=== PATIENT | female | born 1940 | race Caucasian/White ===

== ENCOUNTER 2017-01-20 05:54 | Emergency (ER) | payer MEDICARE, OTHER ==
[2017-01-20] MEDS ORDERED: Proparacaine 0.5% Ophth Soln 15 ML Bottle EYELF STA (06:44)
--- NOTE | 2017-01-20 07:09 | EDM.PDOC ---
ED HPI GENERAL MEDICAL PROBLEM - General Chief Complaint: General Stated Complaint: EYE PAIN Time Seen by Provider: 01/20/17 06:59 - History of Present Illness INITIAL COMMENTS - FREE TEXT/NARRATIVE: HISTORY AND PHYSICAL: History of present illness: The patient is a 76 y/o female who follows at [facility] with Dr. Moreno who presents with complaints of irritation to her left eye that started 2 days ago. It's been gradual in onset and she has intermittent pain in the eye and she does have a history of an implanted lens in that eye many years ago. She has no systemic complaints of fever chills headache sore throat runny nose or sinus congestion and has had no nausea or vomiting. The patient states she has had clear tears and has not been matted. Review of systems: As per history of present illness and below otherwise all systems reviewed and negative. Past medical history: As per history of present illness and as reviewed below otherwise noncontributory. Surgical history: As per history of present illness and as reviewed below otherwise noncontributory. Social history: No reported history of drug or alcohol abuse. Family history: As per history of present illness and as reviewed below otherwise noncontributory. Physical exam: General: Well-developed well-nourished female who is nontoxic and speaking clearly and easily in the ER. HEENT: Atraumatic, normocephalic, pupils reactive, EOMs intact, there is no eyelid swelling or facial swelling, negative for conjunctival pallor or scleral icterus, mucous membranes moist, throat clear, neck supple, nontender, trachea midline. Lungs: Clear to auscultation, breath sounds equal bilaterally, chest nontender. Heart: S1S2, regular, negative for clicks, rubs, or JVD. Abdomen: Soft, nondistended, nontender. Negative for masses or hepatosplenomegaly. NABS Pelvis: Stable nontender. Genitourinary: Deferred. Rectal: Deferred. Extremities: Atraumatic, negative for cords or calf pain. Neurovascular unremarkable. Neuro: Awake, alert, oriented. Cranial nerves II through XII unremarkable. Cerebellum unremarkable. Motor and sensory unremarkable throughout. Exam nonfocal. Diagnostics: Visual acuity per nursing 20/20 Intraocular pressure was performed by Dr. Cole in the left eye and was 22 Fluorescein stain was performed by ga and there were scattered areas of punctate uptake around the iris but there was no large area of uptake Therapeutics: [] Discussed with the patient that she would need to followup with ophthalmology today and she states that she has seen Dr. Sosa in the past. I will give her eyedrops and told her to call the clinic for an appointment to be seen today Impression: Left eye pain and irritation Definitive disposition and diagnosis as appropriate pending reevaluation and review of above. - Related Data Allergies Allergy/AdvReac Type Severity Reaction Status Date / Time No Known Allergies Allergy Verified 06/04/14 20:55 Home Meds: Home Meds Lansoprazole [Prevacid] 30 mg PO DAILY 06/04/14 [History] Metoprolol Tartrate 50 mg PO BID 06/04/14 [History] Vit B12/Pyridoxine/Thiamine [Apatate] 1,000 mcg PO 06/04/14 [History] Vit B6/Me-Thfolate/Me-B12/Ala [Podiapn Capsule] 1 tab PO 06/04/14 [History] metFORMIN [Glucophage] 500 mg PO BIDM 06/04/14 [History] Losartan [Cozaar] 50 mg PO DAILY 06/05/14 [History] Aspirin 325 mg PO Q24H #30 tablet 06/10/14 [Rx] Hydrochlorothiazide 25 mg PO DAILY #30 tablet 06/10/14 [Rx] Simvastatin [Zocor] 40 mg PO BEDTIME #30 tablet 06/10/14 [Rx] Sulfamethoxazole/Trimethoprim [Septra DS] 1 tab PO BID #10 tablet 06/10/14 [Rx] Past Medical History Other Neuro History: Stroke 2years ago - Infectious Disease History Infectious Disease History: Reports: Chicken pox, Measles, Mumps - Past Surgical History Other HEENT Surgeries/Procedures: Lens put in both eyes GI Surgical History: Reports: Appendectomy Social & Family History - Family History Family Medical History: Noncontributory - Tobacco Use Smoking Status *Q: Current Every Day Smoker Years of Tobacco use: 50 Packs/Tins Daily: 1 - Caffeine Use Caffeine Use: Reports: Coffee Caffeine Use Comment: 3cups/day - Alcohol Use Days Per Week of Alcohol Use: 0 - Recreational Drug Use Recreational Drug Use: No ED ROS GENERAL - Review of Systems Review Of Systems: ROS reveals no pertinent complaints other than HPI. ED EXAM, GENERAL - Physical Exam Exam: See Below (See dictation) Course - Vital Signs Last Recorded V/S: Last Vital Signs Temp 36.4 C 01/20/17 05:59 Pulse 71 01/20/17 05:59 Resp 18 01/20/17 05:59 BP 143/68 H 01/20/17 05:59 Pulse Ox 95 01/20/17 05:59 - Orders/Labs/Meds Meds: Medications Discontinued Medications Generic Name Dose Route Start Last Admin Trade Name Freq PRN Reason Stop Dose Admin Proparacaine HCl 1 ml 01/20/17 06:44 01/20/17 06:48 Proparacaine 0.5% Ophth Soln EYELF 01/20/17 06:45 1 ml NOW STA Administration Departure - Departure Time of Disposition: 07:08 Disposition: Home, Self-Care 01 Condition: good Clinical Impression: Irritation of left eye, Left eye pain Forms: ED Department Discharge Additional Instructions: The following information is given to patients seen in the emergency department who are being discharged to home. This information is to outline your options for follow-up care. We provide all patients seen in our emergency department with a follow-up referral. The need for follow-up, as well as the timing and circumstances, are variable depending upon the specifics of your emergency department visit. If you don't have a primary care physician on staff, we will provide you with a referral. We always advise you to contact your personal physician following an emergency department visit to inform them of the circumstance of the visit and for follow-up with them and/or the need for any referrals to a consulting specialist. The emergency department will also refer you to a specialist when appropriate. This referral assures that you have the opportunity for followup care with a specialist. All of these measure are taken in an effort to provide you with optimal care, which includes your followup. Under all circumstances we always encourage you to contact your private physician who remains a resource for coordinating your care. When calling for followup care, please make the office aware that this follow-up is from your recent emergency room visit. If for any reason you are refused follow-up, please contact the [facility] emergency department at and ask to speak to the emergency department charge nurse. [address] [address] Please call the ophthalmology clinic this morning to be seen by Dr. Sosa or one of his associates. Please use the eyedrops as directed if you're unable to see him today. Return to ER as needed and as discussed
[2017-01-20 07:31] VITALS: BP 140/63
== END 2017-01-20 07:30 | disposition home or self-care (01) ==
LOC: MW.ED 05:54
DX: H57.12 Ocular pain, left eye (principal); H57.8 Other specified disorders of eye and adnexa; F17.210 Nicotine dependence, cigarettes, uncomplicated; Z79.899 Other long term (current) drug therapy; Z79.82 Long term (current) use of aspirin; Z79.84 Long term (current) use of oral hypoglycemic drugs; Z90.49 Acquired absence of other specified parts of digestive tract
CPT/HCPCS: 99282; 99283

== ENCOUNTER 2019-09-02 12:31 | Emergency (ER) | payer MEDICARE, OTHER ==
--- NOTE | 2019-09-02 12:34 | EDM.PDOC ---
ED HPI GENERAL MEDICAL PROBLEM - General Stated Complaint: STROKE CODE Time Seen by Provider: 09/02/19 12:33 Source of Information: Reports: Patient - History of Present Illness INITIAL COMMENTS - FREE TEXT/NARRATIVE: HISTORY AND PHYSICAL: History of present illness: [Patient presents with acute onset right-sided stroke symptoms upper and lower extremity aphasia facial droop all on the right history of prior stroke in 2015 unable to obtain review of systems ] Review of systems: As per history of present illness and below otherwise all systems reviewed and negative. Past medical history: As per history of present illness and as reviewed below otherwise noncontributory. Surgical history: As per history of present illness and as reviewed below otherwise noncontributory. Social history: No reported history of drug or alcohol abuse. Family history: As per history of present illness and as reviewed below otherwise noncontributory. Physical exam: HEENT: Atraumatic, normocephalic, pupils reactive, negative for conjunctival pallor or scleral icterus, mucous membranes moist, throat clear, neck supple, nontender, trachea midline. Lungs: Clear to auscultation, breath sounds equal bilaterally, chest nontender. Heart: S1S2, regular, negative for clicks, rubs, or JVD. Abdomen: Soft, nondistended, nontender. Negative for masses or hepatosplenomegaly. Negative for costovertebral tenderness. Pelvis: Stable nontender. Genitourinary: Deferred. Rectal: Deferred. Extremities: Atraumatic, negative for cords or calf pain. Neurovascular unremarkable. Neuro: Awake, alert, right-sided weakness noted as above he aphasia facial droop on right Diagnostics: [BC CMP troponin INR PTT EKG Chest [address] no contrast Originally Dr. Sanchez had accepted Mike Huggins, ever ER deferred patient she did not have interventional radiology I'm contacting [facility] now at [phone] ] Therapeutics: [ normal saline TPA ] Impression: [ stroke ] Definitive disposition and diagnosis as appropriate pending reevaluation and review of above. - Related Data Allergies Allergy/AdvReac Type Severity Reaction Status Date / Time No Known Allergies Allergy Verified 06/04/14 20:55 Home Meds: Home Meds Allopurinol [Zyloprim] 100 mg PO DAILY 09/02/19 [History] Aspirin 81 mg PO DAILY 09/02/19 [History] Cholecalciferol (Vitamin D3) [D-1999] 2,000 unit PO ASDIRECTED 09/02/19 [History ] FA/Lycopene/Lut/MV,Ca,Iron,Min [Centrum] 1 tab PO DAILY 09/02/19 [History] Loperamide [Imodium] 2 mg PO ASDIRECTED 09/02/19 [History] Losartan [Cozaar] 50 mg PO DAILY 09/02/19 [History] Magnesium l-Lactate [Magnesium l-Lactate Dihyd Sr] 84 mg PO ASDIRECTED 09/02/19 [History] Metoprolol Tartrate [Lopressor] 50 mg PO ASDIRECTED 09/02/19 [History] Pravastatin [Pravachol] 40 mg PO DAILY 09/02/19 [History] hydroCHLOROthiazide [Hydrochlorothiazide] 25 mg PO DAILY 09/02/19 [History] metFORMIN [Glucophage XR] 500 mg PO BIDMEALS 09/02/19 [History] Past Medical History Other Neuro History: Stroke 2years ago - Infectious Disease History Infectious Disease History: Reports: Chicken Pox, Measles, Mumps - Past Surgical History Other HEENT Surgeries/Procedures: Lens put in both eyes GI Surgical History: Reports: Appendectomy Social & Family History - Family History Family Medical History: Noncontributory - Caffeine Use Caffeine Use: Reports: Coffee Caffeine Use Comment: 3cups/day ED ROS GENERAL - Review of Systems Review Of Systems: See Below ED EXAM, GENERAL - Physical Exam Exam: See Below Course - Vital Signs Last Recorded V/S: Last Vital Signs Temp 95.6 F 09/02/19 12:34 Pulse 64 09/02/19 12:44 Resp 18 09/02/19 12:44 BP 179/79 H 09/02/19 12:44 Pulse Ox 97 09/02/19 12:44 - Orders/Labs/Meds Orders: Active Orders 24 hr Category Date Time Status EKG Documentation Completion [RC] STAT Care 09/02/19 12:33 Active CULTURE URINE [RM] Stat Lab 09/02/19 13:05 Received Sodium Chloride 0.9% [Normal Saline] 1,000 ml Med 09/02/19 12:45 Active IV STAT Sodium Chloride 0.9% [Normal Saline] 1,000 ml Med 09/02/19 14:00 Active IV STAT Medication Orders Sodium Chloride (Normal Saline) 1,000 mls @ 125 mls/hr IV STAT BHARGAVI Last Admin: 09/02/19 13:02 Dose: 125 mls/hr Sodium Chloride (Normal Saline) 1,000 mls @ 125 mls/hr IV STAT BHARGAVI Labs: Laboratory Tests 09/02/19 09/02/19 09/02/19 Range/Units 12:45 12:45 12:45 WBC 9.86 (4.0-11.0) K/uL RBC 4.80 (4.30-5.90) M/uL Hgb 14.6 (12.0-16.0) g/dL Hct 43.0 (36.0-46.0) % MCV 89.6 (80.0-98.0) fL MCH 30.4 (27.0-32.0) pg MCHC 34.0 (31.0-37.0) g/dL RDW Std Deviation 46.6 (28.0-62.0) fl RDW Coeff of Malorie 14 (11.0-15.0) % Plt Count 220 (150-400) K/uL MPV 10.10 (7.40-12.00) fL Neut % (Auto) 57.5 (48.0-80.0) % Lymph % (Auto) 34.2 (16.0-40.0) % [place] % (Auto) 6.5 (0.0-15.0) % Eos % (Auto) 1.4 (0.0-7.0) % Baso % (Auto) 0.4 (0.0-1.5) % Neut # (Auto) 5.7 (1.4-5.7) K/uL Lymph # (Auto) 3.4 H (0.6-2.4) K/uL [place] # (Auto) 0.6 (0.0-0.8) K/uL Eos # (Auto) 0.1 (0.0-0.7) K/uL Baso # (Auto) 0.0 (0.0-0.1) K/uL Nucleated RBC % 0.0 /100WBC Nucleated RBCs # 0 K/uL INR 1.01 APTT (18.6-31.3) SEC Sodium 142 (136-145) mmol/L Potassium 3.7 (3.5-5.1) mmol/L Chloride 103 (98-107) mmol/L Carbon Dioxide 25.3 (21.0-32.0) mmol/L BUN 18 (7.0-18.0) mg/dL Creatinine 1.5 H (0.6-1.0) mg/dL Est Cr Clr Drug Dosing TNP Estimated GFR (MDRD) 33.5 ml/min Glucose 173 H (74-106) mg/dL Calcium 9.6 (8.5-10.1) mg/dL Total Bilirubin 0.5 (0.2-1.0) mg/dL AST 17 (15-37) IU/L ALT 19 (14-63) IU/L Alkaline Phosphatase 58 (46-116) U/L Troponin I (0.000-0.056) ng/mL Total Protein 8.0 (6.4-8.2) g/dL Albumin 3.7 (3.4-5.0) g/dL Globulin 4.3 H (2.6-4.0) g/dL Albumin/Globulin Ratio 0.9 (0.9-1.6) Urine Color Urine Appearance Urine pH (5.0-8.0) Ur Specific Darling (1.001-1.035) Urine Protein (NEGATIVE) mg/dL Urine Glucose (UA) (NEGATIVE) mg/dL Urine Ketones (NEGATIVE) mg/dL Urine Occult Blood (NEGATIVE) Urine Nitrite (NEGATIVE) Urine Bilirubin (NEGATIVE) Urine Urobilinogen (<2.0) EU/dL Ur Leukocyte Esterase (NEGATIVE) Urine RBC (0-2/HPF) Urine WBC (0-5/HPF) Ur Epithelial Cells (NONE-FEW) Urine Bacteria (NEGATIVE) 09/02/19 09/02/19 09/02/19 Range/Units 12:45 12:45 13:05 WBC (4.0-11.0) K/uL RBC (4.30-5.90) M/uL Hgb (12.0-16.0) g/dL Hct (36.0-46.0) % MCV (80.0-98.0) fL MCH (27.0-32.0) pg MCHC (31.0-37.0) g/dL RDW Std Deviation (28.0-62.0) fl RDW Coeff of Malorie (11.0-15.0) % Plt Count (150-400) K/uL MPV (7.40-12.00) fL Neut % (Auto) (48.0-80.0) % Lymph % (Auto) (16.0-40.0) % [place] % (Auto) (0.0-15.0) % Eos % (Auto) (0.0-7.0) % Baso % (Auto) (0.0-1.5) % Neut # (Auto) (1.4-5.7) K/uL Lymph # (Auto) (0.6-2.4) K/uL [place] # (Auto) (0.0-0.8) K/uL Eos # (Auto) (0.0-0.7) K/uL Baso # (Auto) (0.0-0.1) K/uL Nucleated RBC % /100WBC Nucleated RBCs # K/uL INR APTT 27.3 (18.6-31.3) SEC Sodium (136-145) mmol/L Potassium (3.5-5.1) mmol/L Chloride (98-107) mmol/L Carbon Dioxide (21.0-32.0) mmol/L BUN (7.0-18.0) mg/dL Creatinine (0.6-1.0) mg/dL Est Cr Clr Drug Dosing Estimated GFR (MDRD) ml/min Glucose (74-106) mg/dL Calcium (8.5-10.1) mg/dL Total Bilirubin (0.2-1.0) mg/dL AST (15-37) IU/L ALT (14-63) IU/L Alkaline Phosphatase (46-116) U/L Troponin I < 0.050 (0.000-0.056) ng/mL Total Protein (6.4-8.2) g/dL Albumin (3.4-5.0) g/dL Globulin (2.6-4.0) g/dL Albumin/Globulin Ratio (0.9-1.6) Urine Color YELLOW Urine Appearance HAZY Urine pH 5.0 (5.0-8.0) Ur Specific [place] 1.025 (1.001-1.035) Urine Protein NEGATIVE (NEGATIVE) mg/dL Urine Glucose (UA) NEGATIVE (NEGATIVE) mg/dL Urine Ketones NEGATIVE (NEGATIVE) mg/dL Urine Occult Blood NEGATIVE (NEGATIVE) Urine Nitrite POSITIVE H (NEGATIVE) Urine Bilirubin NEGATIVE (NEGATIVE) Urine Urobilinogen 0.2 (<2.0) EU/dL Ur Leukocyte Esterase NEGATIVE (NEGATIVE) Urine RBC 0-1 (0-2/HPF) Urine WBC 0-2 (0-5/HPF) Ur Epithelial Cells RARE (NONE-FEW) Urine Bacteria 3+ H (NEGATIVE) Meds: Medications Generic Name Dose Route Start Last Admin Trade Name Freq PRN Reason Stop Dose Admin Sodium Chloride 1,000 mls @ 125 mls/hr 09/02/19 12:45 09/02/19 13:02 Normal Saline IV 125 mls/hr STAT BHARGAVI Administration Sodium Chloride 1,000 mls @ 125 mls/hr 09/02/19 14:00 Normal Saline IV STAT BHARGAVI Discontinued Medications Generic Name Dose Route Start Last Admin Trade Name Freq PRN Reason Stop Dose Admin Alteplase, Recombinant Confirm 09/02/19 13:20 Activase Administered 09/02/19 13:21 Dose 100 mg .ROUTE .STK-MED ONE Ondansetron HCl 8 mg 09/02/19 12:50 09/02/19 13:02 Zofran IVPUSH 09/02/19 12:51 8 mg ONETIME ONE Administration Ondansetron HCl Confirm 09/02/19 12:50 09/02/19 13:03 Zofran Administered 09/02/19 12:51 Not Given Dose 8 mg .ROUTE .STK-MED ONE Departure - Departure Time of Disposition: 14:11 Disposition: DC/Tfer to Acute Hospital 02 Condition: Poor Clinical Impression: CVA (cerebral vascular accident) - Discharge Information Referrals: Lawrence Moreno MD [Primary Care Provider] - - My Orders Last 24 Hours: My Active Orders 09/02/19 12:33 EKG Documentation Completion [RC] STAT 09/02/19 12:45 Sodium Chloride 0.9% [Normal Saline] 1,000 ml IV STAT 09/02/19 13:05 CULTURE URINE [RM] Stat 09/02/19 14:00 Sodium Chloride 0.9% [Normal Saline] 1,000 ml IV STAT - Assessment/Plan Last 24 Hours: My Active Orders 09/02/19 12:33 EKG Documentation Completion [RC] STAT 09/02/19 12:45 Sodium Chloride 0.9% [Normal Saline] 1,000 ml IV STAT 09/02/19 13:05 CULTURE URINE [RM] Stat 09/02/19 14:00 Sodium Chloride 0.9% [Normal Saline] 1,000 ml IV STAT
[2019-09-02] MEDS ORDERED: Sodium Chloride 0.9% 1,000 ML IV SCH ×2 (12:45→14:00)
[2019-09-02] MEDS ORDERED: Ondansetron 4 MG/2 ML SDV IVPUSH ONE (12:50)
[2019-09-02] MEDS ORDERED: Ondansetron 4 MG/2 ML SDV ONE (12:50)
--- NOTE | 2019-09-02 13:16 | CT ---
INDICATION: Unresponsive. Right-sided weakness and vomiting. History of stroke. TECHNIQUE: Noncontrast CT images were obtained through the brain. COMPARISON: CT brain 06/04/2014. FINDINGS: Large chronic infarction involving the majority of the left occipital lobe and extending and anteromedial left temporal lobe associated with ex vacuo dilatation of the left lateral ventricle. Prominence of the ventricles and sulci compatible with [id number] diffuse cerebral volume loss. No mass effect or midline shift. Patchy hypoattenuation the supratentorial white matter, suggestive of [id number] chronic microvascular ischemic changes. Punctate focus of hypoattenuation within the left basal ganglia (series 201, image 31) has increased in conspicuity and may represent an age-indeterminate lacunar infarction or prominent perivascular space. Atherosclerotic calcifications in the intracranial internal carotid arteries. No acute intracranial hemorrhage or pathologic extra-axial fluid collection. Thinning of the ocular lenses. The calvarium is intact. The paranasal sinuses and mastoid air cells are clear. IMPRESSION: 1. No acute intracranial hemorrhage or mass effect. 2. Large chronic infarction centered in the left occipital lobe associated with ex vacuo dilatation of the left lateral ventricle. 3. Punctate focus of hypoattenuation within the left basal ganglia may represent an age-indeterminate lacunar infarction or prominent perivascular space. 4. Suggested [id number] chronic microvascular ischemic changes. 5. [id number] diffuse cerebral volume loss. Please note that all CT scans at this facility use dose modulation, iterative reconstruction, and/or weight-based dosing when appropriate to reduce radiation dose to as low as reasonably achievable. Dictated by Jhon Berg MD @ Sep 02 2019 1:02PM Signed by Dr. Jhon Berg @ Sep 02 2019 1:15PM
[2019-09-02 13:27] LABS: BLOOD UREA NITROGEN,BUN 18 mg/dL (7.0-18.0); CARBON DIOXIDE,CO2 25.3 mmol/L (21.0-32.0); CHLORIDE,CL 103 mmol/L (98-107); GLUCOSE RANDOM 173 mg/dL (74-106); POTASSIUM,K 3.7 mmol/L (3.5-5.1); SODIUM,NA 142 mmol/L (136-145)
--- NOTE | 2019-09-02 13:56 | CR ---
EXAM DATE: 09/02/19 PATIENT'S AGE: 79 Chest: Portable view of the chest was obtained. Comparison: No prior chest x-ray. Heart size and mediastinum are normal. Lung markings are diffusely increased. Lungs otherwise are clear. Bony structures are grossly intact. Impression: 1. Increased lung markings. Without old chest x-ray, uncertain if this is chronic or represents acute change from bronchitis. 2. No alveolar type densities are seen. Diagnostic code #3 Report Signed by Proxy. VINNY
--- NOTE | 2019-09-02 16:27 | EDM.PDOC ---
ED HPI GENERAL MEDICAL PROBLEM - General Chief Complaint: Neuro Symptoms/Deficits Stated Complaint: STROKE CODE Time Seen by Provider: 09/02/19 12:33 Source of Information: Reports: Patient - History of Present Illness INITIAL COMMENTS - FREE TEXT/NARRATIVE: History obtained from her son who lives with her. She was in her usual state of health when she woke up this morning. While she was eating breakfast, he noted that her right face started to droop. Onset was at 10:30. He called ambulance, which took awhile to get there because of incorrect address according to her son. In the ED, she was noted to have right sided weakness. She has been nonverbal Her son notes that she has a h/o DM, but it improved after she lost weight after last stroke. Her last stroke was in June 2014 and was associated with vision loss, inability to reads. Review of images showed it to be a large left CASER UP territory infarct. S Examination: Mental status: Eyes closed, opens to noxious stimuli only. No command following. CN: + blink to threat, eye deviated to left but cross midline with Dolls maneuver. Moderate right facial droop noted. Motor: Extensor posturing right upper limb to noxious stimuli. 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 She may be a candidate for thrombectomy, so I recommend transfer to hospital where they have these capabilities. ] - Related Data Allergies Allergy/AdvReac Type Severity Reaction Status Date / Time No Known Allergies Allergy Verified 06/04/14 20:55 Home Meds: Home Meds Allopurinol [Zyloprim] 100 mg PO DAILY 09/02/19 [History] Aspirin 81 mg PO DAILY 09/02/19 [History] Cholecalciferol (Vitamin D3) [D-2000] 2,000 unit PO ASDIRECTED 09/02/19 [History ] FA/Lycopene/Lut/MV,Ca,Iron,Min [Centrum] 1 tab PO DAILY 09/02/19 [History] Loperamide [Imodium] 2 mg PO ASDIRECTED 09/02/19 [History] Losartan [Cozaar] 50 mg PO DAILY 09/02/19 [History] Magnesium l-Lactate [Magnesium l-Lactate Dihyd Sr] 84 mg PO ASDIRECTED 09/02/19 [History] Metoprolol Tartrate [Lopressor] 50 mg PO ASDIRECTED 09/02/19 [History] Pravastatin [Pravachol] 40 mg PO DAILY 09/02/19 [History] hydroCHLOROthiazide [Hydrochlorothiazide] 25 mg PO DAILY 09/02/19 [History] metFORMIN [Glucophage XR] 500 mg PO BIDMEALS 09/02/19 [History] Past Medical History Genitourinary History: Reports: UTI, Recurrent Other Neuro History: Stroke 2years ago Other Endocrine/Metabolic History: prediabetic - Infectious Disease History Infectious Disease History: Reports: Chicken Pox, Measles, Mumps - Past Surgical History Other HEENT Surgeries/Procedures: Lens put in both eyes GI Surgical History: Reports: Appendectomy Social & Family History - Family History Family Medical History: Noncontributory - Tobacco Use Smoking Status *Q: Current Every Day Smoker Years of Tobacco use: 60 Packs/Tins Daily: 1 - Caffeine Use Caffeine Use: Reports: Coffee Caffeine Use Comment: 3cups/day - Recreational Drug Use Recreational Drug Use: No ED ROS GENERAL - Review of Systems Review Of Systems: Unable To Obtain ED EXAM, NEURO - Physical Exam Exam: See Below Comments: see initial comments Course - Vital Signs Last Recorded V/S: Last Vital Signs Temp 35.3 C 09/02/19 12:34 Pulse 64 09/02/19 12:44 Resp 18 09/02/19 12:44 BP 179/79 H 09/02/19 12:44 Pulse Ox 97 09/02/19 12:44 - Orders/Labs/Meds Orders: Active Orders 24 hr Category Date Time Status EKG Documentation Completion [RC] STAT Care 09/02/19 12:33 Active CULTURE URINE [RM] Stat Lab 09/02/19 13:05 Received Sodium Chloride 0.9% [Normal Saline] 1,000 ml Med 09/02/19 12:45 Active IV STAT Sodium Chloride 0.9% [Normal Saline] 1,000 ml Med 09/02/19 14:00 Active IV STAT Medication Orders Sodium Chloride (Normal Saline) 1,000 mls @ 125 mls/hr IV STAT BHARGAVI Last Admin: 09/02/19 13:02 Dose: 125 mls/hr Sodium Chloride (Normal Saline) 1,000 mls @ 125 mls/hr IV STAT BHARGAVI Labs: Laboratory Tests 09/02/19 09/02/19 09/02/19 Range/Units 12:45 12:45 12:45 WBC 9.86 (4.0-11.0) K/uL RBC 4.80 (4.30-5.90) M/uL Hgb 14.6 (12.0-16.0) g/dL Hct 43.0 (36.0-46.0) % MCV 89.6 (80.0-98.0) fL MCH 30.4 (27.0-32.0) pg MCHC 34.0 (31.0-37.0) g/dL RDW Std Deviation 46.6 (28.0-62.0) fl RDW Coeff of Malorie 14 (11.0-15.0) % Plt Count 220 (150-400) K/uL MPV 10.10 (7.40-12.00) fL Neut % (Auto) 57.5 (48.0-80.0) % Lymph % (Auto) 34.2 (16.0-40.0) % Emmet % (Auto) 6.5 (0.0-15.0) % Eos % (Auto) 1.4 (0.0-7.0) % Baso % (Auto) 0.4 (0.0-1.5) % Neut # (Auto) 5.7 (1.4-5.7) K/uL Lymph # (Auto) 3.4 H (0.6-2.4) K/uL Emmet # (Auto) 0.6 (0.0-0.8) K/uL Eos # (Auto) 0.1 (0.0-0.7) K/uL Baso # (Auto) 0.0 (0.0-0.1) K/uL Nucleated RBC % 0.0 /100WBC Nucleated RBCs # 0 K/uL INR 1.01 APTT (18.6-31.3) SEC Sodium 142 (136-145) mmol/L Potassium 3.7 (3.5-5.1) mmol/L Chloride 103 (98-107) mmol/L Carbon Dioxide 25.3 (21.0-32.0) mmol/L BUN 18 (7.0-18.0) mg/dL Creatinine 1.5 H (0.6-1.0) mg/dL Est Cr Clr Drug Dosing TNP Estimated GFR (MDRD) 33.5 ml/min Glucose 173 H (74-106) mg/dL Calcium 9.6 (8.5-10.1) mg/dL Total Bilirubin 0.5 (0.2-1.0) mg/dL AST 17 (15-37) IU/L ALT 19 (14-63) IU/L Alkaline Phosphatase 58 (46-116) U/L Troponin I (0.000-0.056) ng/mL Total Protein 8.0 (6.4-8.2) g/dL Albumin 3.7 (3.4-5.0) g/dL Globulin 4.3 H (2.6-4.0) g/dL Albumin/Globulin Ratio 0.9 (0.9-1.6) Urine Color Urine Appearance Urine pH (5.0-8.0) Ur Specific [place] (1.001-1.035) Urine Protein (NEGATIVE) mg/dL Urine Glucose (UA) (NEGATIVE) mg/dL Urine Ketones (NEGATIVE) mg/dL Urine Occult Blood (NEGATIVE) Urine Nitrite (NEGATIVE) Urine Bilirubin (NEGATIVE) Urine Urobilinogen (<2.0) EU/dL Ur Leukocyte Esterase (NEGATIVE) Urine RBC (0-2/HPF) Urine WBC (0-5/HPF) Ur Epithelial Cells (NONE-FEW) Urine Bacteria (NEGATIVE) 09/02/19 09/02/19 09/02/19 Range/Units 12:45 12:45 13:05 WBC (4.0-11.0) K/uL RBC (4.30-5.90) M/uL Hgb (12.0-16.0) g/dL Hct (36.0-46.0) % MCV (80.0-98.0) fL MCH (27.0-32.0) pg MCHC (31.0-37.0) g/dL RDW Std Deviation (28.0-62.0) fl RDW Coeff of Malorie (11.0-15.0) % Plt Count (150-400) K/uL MPV (7.40-12.00) fL Neut % (Auto) (48.0-80.0) % Lymph % (Auto) (16.0-40.0) % Emmet % (Auto) (0.0-15.0) % Eos % (Auto) (0.0-7.0) % Baso % (Auto) (0.0-1.5) % Neut # (Auto) (1.4-5.7) K/uL Lymph # (Auto) (0.6-2.4) K/uL Emmet # (Auto) (0.0-0.8) K/uL Eos # (Auto) (0.0-0.7) K/uL Baso # (Auto) (0.0-0.1) K/uL Nucleated RBC % /100WBC Nucleated RBCs # K/uL INR APTT 27.3 (18.6-31.3) SEC Sodium (136-145) mmol/L Potassium (3.5-5.1) mmol/L Chloride (98-107) mmol/L Carbon Dioxide (21.0-32.0) mmol/L BUN (7.0-18.0) mg/dL Creatinine (0.6-1.0) mg/dL Est Cr Clr Drug Dosing Estimated GFR (MDRD) ml/min Glucose (74-106) mg/dL Calcium (8.5-10.1) mg/dL Total Bilirubin (0.2-1.0) mg/dL AST (15-37) IU/L ALT (14-63) IU/L Alkaline Phosphatase (46-116) U/L Troponin I < 0.050 (0.000-0.056) ng/mL Total Protein (6.4-8.2) g/dL Albumin (3.4-5.0) g/dL Globulin (2.6-4.0) g/dL Albumin/Globulin Ratio (0.9-1.6) Urine Color YELLOW Urine Appearance HAZY Urine pH 5.0 (5.0-8.0) Ur Specific [place] 1.025 (1.001-1.035) Urine Protein NEGATIVE (NEGATIVE) mg/dL Urine Glucose (UA) NEGATIVE (NEGATIVE) mg/dL Urine Ketones NEGATIVE (NEGATIVE) mg/dL Urine Occult Blood NEGATIVE (NEGATIVE) Urine Nitrite POSITIVE H (NEGATIVE) Urine Bilirubin NEGATIVE (NEGATIVE) Urine Urobilinogen 0.2 (<2.0) EU/dL Ur Leukocyte Esterase NEGATIVE (NEGATIVE) Urine RBC 0-1 (0-2/HPF) Urine WBC 0-2 (0-5/HPF) Ur Epithelial Cells RARE (NONE-FEW) Urine Bacteria 3+ H (NEGATIVE) Meds: Medications Generic Name Dose Route Start Last Admin Trade Name Freq PRN Reason Stop Dose Admin Sodium Chloride 1,000 mls @ 125 mls/hr 09/02/19 12:45 09/02/19 13:02 Normal Saline IV 125 mls/hr STAT BHARGAVI Administration Sodium Chloride 1,000 mls @ 125 mls/hr 09/02/19 14:00 Normal Saline IV STAT BHARGAVI Discontinued Medications Generic Name Dose Route Start Last Admin Trade Name Freq PRN Reason Stop Dose Admin Alteplase, Recombinant Confirm 09/02/19 13:20 Activase Administered 09/02/19 13:21 Dose 100 mg .ROUTE .STK-MED ONE Ondansetron HCl 8 mg 09/02/19 12:50 09/02/19 13:02 Zofran IVPUSH 09/02/19 12:51 8 mg ONETIME ONE Administration Ondansetron HCl Confirm 09/02/19 12:50 09/02/19 13:03 Zofran Administered 09/02/19 12:51 Not Given Dose 8 mg .ROUTE .STK-MED ONE Departure - Departure Time of Disposition: 13:30 Disposition: DC/Tfer to Acute Hospital 02 Condition: Poor Clinical Impression: CVA (cerebral vascular accident) - Discharge Information Referrals: Lawrence Moreno MD [Primary Care Provider] -
[2019-09-02 16:34] VITALS: BP 168/79; PULSE 68
== END 2019-09-02 14:25 ==
LOC: MW.ED 12:31
DX: I63.9 Cerebral infarction, unspecified (principal); F17.210 Nicotine dependence, cigarettes, uncomplicated
CPT/HCPCS: 36415; 70450; 71045; 80053; 81001; 84484; 85025; 85610; 85730; 87086; 87088; 87186; 93005; 96361; 96365; 96375; 99285; J2405; J7040